=== PATIENT | male | born 1980 | race Caucasian/White ===

== ENCOUNTER 2025-02-12 08:31 | Emergency (ER) | payer BC ==
[~2025-02-12] VITALS: Wt 86.2 kg
[2025-02-12 09:37] LABS: BUN 16 mg/dl (9-23); CHLORIDE 106 mmol/L (98-107)
[2025-02-12] MEDS ORDERED: diazePAM 10 MG/2 ML SYR IV ONE (11:30)
[2025-02-12] MEDS ORDERED: Ketorolac Tromethamine 30 MG/ML VIAL IV ONE (11:30)
[2025-02-12] MEDS ORDERED: MORPHINE Sulfate 2 MG/ML SYR IV ONE (11:35)
[2025-02-12] MEDS ORDERED: Metoclopramide Hydrochloride 10 MG/2 ML VIAL IV ONE (12:35)
[2025-02-12] MEDS ORDERED: Lidocaine Hydrochloride 15 ML UDC PO STA (12:37)
[2025-02-12] MEDS ORDERED: Dicyclomine Hydrochloride 20 MG/10 ML OSYR PO STA (12:37)
[2025-02-12] MEDS ORDERED: MG-AL HYDROXIDE/SIMETICONE 30 ML UDC PO STA (12:37)
[2025-02-12] MEDS ORDERED: Pantoprazole Sodium 40 MG PKT NG ONE (13:00)
[2025-02-12] MEDS ORDERED: diphenhydrAMINE hydrochloride 50 MG/ML VIAL IM ONE (13:05)
== END 2025-02-12 14:00 | disposition home or self-care (01) ==
LOC: ED 08:31
PROVIDERS: Internal Medicine
DX: M54.30 Sciatica, unspecified side (principal); J45.909 Unspecified asthma, uncomplicated; Z79.899 Other long term (current) drug therapy